=== PATIENT | male | born 1970 | race African-American/Black ===

== ENCOUNTER 2019-04-20 12:10 | Emergency (ER) | payer OTHER | END 2019-04-20 13:50 | disposition home or self-care (01) | LOC: JER 12:10 → JERFT 13:50 ==

== ENCOUNTER 2020-01-15 13:52 | Emergency (ER) | payer OTHER ==
--- NOTE | 2020-01-15 13:56 | PDOC ---
Rapid Medical Evaluation Time Seen by Provider: 01/15/20 13:53 Medical Evaluation: Allergies Allergy/AdvReac Type Severity Reaction Status Date / Time No Known Allergies Allergy Verified 02/02/16 09:05 01/15/20 13:53 have performed a brief in-person evaluation of this patient. The patient presents with a chief complaint of:congestion Pertinent physical exam findings:stable and well mellissa I have ordered the following:nothing The patient will proceed to the ED for further evaluation. Discharge Disposition - Diagnosis Nasal congestion - Referrals - Patient Instructions - Post Discharge Activity
[2020-01-15 13:59] VITALS: BP 115/64; PULSE 82; TEMP 98.2; BMI 31.0
--- NOTE | 2020-01-15 14:11 | PDOC ---
History of Present Illness - General Chief Complaint: Cold Symptoms Stated Complaint: COLD SYMPTOMS Time Seen by Provider: 01/15/20 13:53 - History of Present Illness Initial Comments: 01/15/20 14:10 49-year-old male with a past medical history of hypertension diabetes presents for evaluation of nasal congestion and ear congestion x1 week without systemic symptoms Past History - Past Medical History Allergies/Adverse Reactions: Allergies Allergy/AdvReac Type Severity Reaction Status Date / Time No Known Allergies Allergy Verified 01/15/20 13:55 Home Medications: Ambulatory Orders Atorvastatin Ca [Lipitor] 20 mg PO HS 01/15/20 Budesonide [Rhinocort Allergy] 1 spray NS ONCE #1 spray.pump 01/15/20 Cetirizine HCl [Zyrtec -] 10 mg PO DAILY #30 tablet 01/15/20 Ibuprofen [Motrin -] 800 mg PO PRN 01/15/20 Lisinopril 10 mg PO DAILY 01/15/20 Cancer: No Cardiac Disorders: No CVA: No COPD: No CHF: No DVT: No Dementia: No HTN: Yes - Surgical History Orthopedic Surgery: Yes (b/l lower leg fractured) - Psycho Social/Smoking Cessation Hx Smoking Status: No Smoking History: Never smoked Number of Cigarettes Smoked Daily: 0 Information on smoking cessation initiated: No Hx Alcohol Use: No Drug/Substance Use Hx: No Substance Use Type: None Review of Systems - Review of Systems Constitutional: No: Fever HEENTM: Yes: See HPI, Nose Congestion *Physical Exam - Vital Signs Last Vital Signs Temp Pulse Resp BP Pulse Ox 98.2 F 82 19 115/64 99 01/15/20 13:54 01/15/20 13:54 01/15/20 13:54 01/15/20 13:54 01/15/20 13:54 - Physical Exam 01/15/20 14:10 GENERAL: The patient is awake, alert, and fully oriented, in no acute distress. HEAD: Normal with no signs of trauma. EYES: sclera anicteric, conjunctiva clear. ENT: Ears normal tympanic membranes normal oropharynx clear uvula midline NECK: Normal range of motion LUNGS: Breath sounds equal, clear to auscultation bilaterally. No wheezes, and no crackles. HEART: S1 and S2 without murmur, rub or gallop. ABDOMEN: Soft, nontender, normoactive bowel sounds. No guarding, no rebound. No masses. EXTREMITIES: Normal range of motion, no edema. No clubbing or cyanosis. No cords, erythema, or tenderness. NEUROLOGICAL: Cranial nerves II through XII grossly intact. PSYCH: Normal mood, normal affect. SKIN: Warm, Dry, normal turgor, no rashes or lesions noted. Medical Decision Making - Medical Decision Making 01/15/20 14:10 Antihistamine and steroid on nasal spray for seasonal allergy exacerbation discussed the use of the steroid on nasal spray and possibly raising blood sugar patient is aware and will monitor sugars and follow-up with his primary care physician Discharge - Discharge Information Problems reviewed: Yes Clinical Impression/Diagnosis: Nasal congestion Condition: Stable Disposition: HOME - Admission No - Additional Discharge Information Prescriptions: Budesonide [Rhinocort Allergy] 1 spray NS ONCE #1 spray.pump Cetirizine HCl [Zyrtec -] 10 mg PO DAILY #30 tablet - Follow up/Referral Referrals: Kilo Mcfarland MD [Primary Care Provider] - - Patient Discharge Instructions Additional Instructions: Please use the steroid nasal spray and Zyrtec as directed. Return to the emergency room for worsening symptoms. Without fail follow-up with your primary care physician in 1 to 2 days for further evaluation and treatment options. - Post Discharge Activity
== END 2020-01-15 14:16 | disposition home or self-care (01) ==
LOC: JERFT 13:52
DX: R09.81 Nasal congestion (principal); I10 Essential (primary) hypertension; E11.9 Type 2 diabetes mellitus without complications
CPT/HCPCS: 99283-25

== ENCOUNTER 2020-10-21 16:21 | Emergency (ER) | payer OTHER ==
[2020-10-21 16:32] VITALS: TEMP 99.1; BMI 30.2
[2020-10-21] MEDS ORDERED: ACETAMINOPHEN 325 MG TABLET (FP) PO ONE (18:13)
[2020-10-21] MEDS ORDERED: ACETAMINOPHEN 325 MG TABLET (FP) ONE ×2 (19:11→19:21)
[2020-10-21 19:55] LABS: BASO % 0.4 % (0-2.0); EOS % 1.5 % (0-4.5); HEMATOCRIT 46.9 % (35.4-49); HEMOGLOBIN 15.1 GM/dL (11.7-16.9); LYMPH % 29.1 % (8-40); MCH 29.1 pg (25.7-33.7); MCHC 32.2 g/dl (32.0-35.9); MEAN CELL VOLUME 90.4 fl (80-96); MEAN PLT VOLUME 9.8 fl (7.5-11.1); MONO % 7.1 % (3.8-10.2); NEUT % 61.9 % (42.8-82.8); PLATELET COUNT 219 K/MM3 (134-434); RBC 5.19 M/mm3 (4.00-5.60); RDW 13.6 % (11.9-15.9); WHITE BLOOD COUNT 9.7 K/mm3 (4.0-10.0)
[2020-10-21 20:01] LABS: CHLORIDE 105 mmol/L (98-107); POTASSIUM 4.2 mmol/L (3.5-5.1); SODIUM 141 mmol/L (136-145)
[2020-10-21 20:02] LABS: ALBUMIN 4.7 g/dl (3.4-5.0)
[2020-10-21 20:03] LABS: ANION GAP 7 MMOL/L (8-16); BLOOD UREA NITROGEN 13.1 mg/dL (7-18); CALCIUM 10.1 mg/dL (8.5-10.1); CO2 29 mmol/L (21-32); GLUCOSE,RANDOM 103 mg/dL (74-106)
[2020-10-21 20:06] LABS: SGPT/ALT 35 U/L (13-61)
[2020-10-21 20:07] LABS: CREATININE 1.2 mg/dL (0.55-1.3); SGOT/AST 17 U/L (15-37)
[2020-10-21 20:08] LABS: BILIRUBIN,TOTAL 0.6 mg/dL (0.2-1); TOT PROT 8.2 g/dl (6.4-8.2)
[2020-10-21 20:09] LABS: ALK PHOS 97 U/L (45-117)
[2020-10-21 20:11] LABS: N-TERMINAL BNP 11.6 pg/ml (5-125)
[2020-10-21 20:53] VITALS: BP 142/82; PULSE 80
== END 2020-10-21 20:53 | disposition home or self-care (01) ==
LOC: JER 16:21
DX: R59.0 Localized enlarged lymph nodes (principal); R07.9 Chest pain, unspecified
CPT/HCPCS: 36415; 71046-TC-FY; 80053; 83880; 84484; 85025; 93005; 93010; 99285-25